=== PATIENT | female | born 1975 | race American Indian/Alaskan Native ===

== ENCOUNTER 2016-05-24 10:37 | Outpatient (CLI) | payer MEDICAID ==
--- NOTE | 2016-05-25 12:55 | Mammography Report ---
BILATERAL DIGITAL SCREENING MAMMOGRAM WITH CAD: 05/24/16 10:37:00 CLINICAL: Routine screening.Breast cancer survivor status post left partial mastectomy and radiation therapy. COMPARISON:04/29/15 and 04/15/14 FINDINGS: The breasts are heterogeneously dense, which may obscure small masses. The left breast is smaller than the right. A predominantly fat density mass with dystrophic benign calcifications at 6 o'clock is stable compared to prior exams. No new mass, suspicious architectural distortion or suspicious calcifications. IMPRESSION: No mammographic evidence of malignancy. Stable benign fat necrosis of the left breast. BI-RADS CATEGORY: 2 -- Benign RECOMMENDATION: Routine mammographic screening in one year. COMMENT: Patient follow-up letters are generated via our [employer] application.
== END 2016-05-24 10:38 | disposition home or self-care (01) ==
LOC: SPVWC 10:37
PROVIDERS: ATTEND Internal Medicine Hematology & Oncology
DX: Z12.31 Encounter for screening mammogram for malignant neoplasm of breast (principal); Z90.12 Acquired absence of left breast and nipple
CPT/HCPCS: 77067; G0202